=== PATIENT | female | born 1950 | race Caucasian/White ===

== ENCOUNTER 2016-10-09 01:24 | Emergency (ER) | payer MEDICARE ==
[2016-10-09 01:48] LABS: BASOPHIL# 0.1 X 10^3uL (0.0-0.1); BASOPHILS 0.8 % (0.0-2.0); EOSINOPHILS 3.1 % (0.0-6.0); EOSINOPHILS# 0.2 X 10^3uL (0.0-0.4); HEMATOCRIT 40.9 % (36.0-48.0); LYMPHOCYTES 37.1 % (20.0-40.0); LYMPHOCYTES# 2.9 X 10^3uL (0.8-3.8); MEAN CORPUS. HGB CONCENTRATION 34.3 g/dL (32.0-36.0); MEAN CORPUSCULAR HEMOGLOBIN 30.9 pg (29.0-35.0); MEAN PLATELET VOLUME 7.3 fL (7.4-10.4); MONOCYTES 10.1 % (2.0-10.0); MONOCYTES# 0.8 X 10^3uL (0.2-1.0); NEUTROPHILS 48.9 % (54.0-75.0); NEUTROPHILS# 3.9 X 10^3uL (2.6-6.7); RED BLOOD COUNT 4.54 X 10^6uL (4.20-6.10); RED CELL DISTRIBUTION WIDTH 12.8 % (11.5-14.5); WHITE BLOOD COUNT 7.9 X 10^3uL (3.9-10.7)
[2016-10-09 01:50] LABS: ALBUMIN 4.2 g/dL (3.5-5.0); BILIRUBIN, DIRECT 0.3 mg/dL (0.0-0.4); BILIRUBIN, TOTAL 0.6 mg/dL (0.2-1.3); CALCIUM 9.8 mg/dL (8.4-10.2); POTASSIUM 3.6 mmol/L (3.5-5.1); TOTAL PROTEIN 7.5 g/dL (6.3-8.2)
[2016-10-09] MEDS ORDERED: MAG-AL PLUS XS SUSP 30 ML UDC ONE (01:50)
[2016-10-09] MEDS ORDERED: LIDOCAINE VISCOUS 2% 15 ML UDC ONE (01:51)
[2016-10-09] MEDS ORDERED: FAMOTIDINE IN SALINE, ISO-OSM 20 MG/50 ML PIGGYBACK IV ONE (01:51)
--- NOTE | 2016-10-09 02:20 | ER NURSING DOCUMENTATION ---
Nurse's Notes [facility] Name:Ashley Segovia Age:65 yrs Sex:Female :1950 Arrival Date:10/09/2016 Time:01:24 Bed3 Private MD: Diagnosis:Gastritis;Abdominal Pain, Epigastric Presentation: 10/09 01:31 Presenting complaint: Patient states: upper gastric pain x 3 days. Transition of care: bw2 patient was not received from another setting of care. 01:31 Acuity: JUSTICE 2 bw2 01:31 Method Of Arrival: Walk In [facility] Triage Assessment: 01:32 General: Appears uncomfortable, Behavior is appropriate for age. Pain: Complains of bw2 pain in xyphoid area. GI: No deficits noted. Denies diarrhea, nausea. Historical: - Allergies: Keflex; PENICILLINS; - Tetanus: < 10 years. - Ebola Screening: : Patient negative for fever greater than or equal to 101.5 degrees Fahrenheit, and additional compatible Ebola Virus Disease symptoms. Patient denies exposure to infectious person. Patient denies travel to an Ebola-affected area in the 21 days before illness onset. No symptoms or risks identified at this time. . - Immunization history: Flu Vaccine < 1 year. - Social history: Smoking status: Patient states was never smoker of tobacco. Screenin:17 Infectious Disease Risk None. Abuse screen: Denies threats or abuse. Denies injuries bw2 from another. Nutritional screening: No deficits noted. Assessment: 02:16 See Triage Assessment done by same RN. bw2 02:18 GI: Bowel sounds present X 4 quads. Abdomen is tender to palpation in epigastric area. bw2 Vital Signs: 01:33 BP 165 / 93; Pulse 68; Resp 18; Temp 98.7; Pulse Ox 96% on R/A; Weight 88.45 kg; Height bw2 5 ft. 6 in. (167.64 cm); Pain 3/10; 02:17 BP 146 / 74; Pulse 70; Resp 18; Pulse Ox 96% on R/A; bw2 01:33 Body Mass Index 31.47 (88.45 kg, 167.64 cm) 2 ED Course: 01:25 Patient arrived in ED. ma1 01:30 Lui Mccray MD is Attending Physician. jm 01:30 Anum Skinner is Primary Nurse. bw2 01:31 Triage completed. bw2 01:41 EKG done. (by ED staff). Reviewed by Lui Mccray MD. 02:01 [facility] is Referral Physician. 02:17 Valuables Remains with patient Patient has correct armband on for positive bw2 identification. Placed in gown. Bed in low position. Administered Medications: 01:31 CANCELLED (Physician Discretion): Zofran 4 mg IVP once over 2 mins sina 01:42 Drug: NS 0.9% 1000 ml; Route: IV; Rate: bolus; Site: left antecubital; bw2 02:16 Follow up: IV Status: Completed infusion bw2 01:42 Drug: Pepcid 20 mg; Route: IVPB; Site: left antecubital; bw2 02:16 Follow up: IV Status: Completed infusion bw2 01:43 Drug: GI Cocktail w/o Donnatol - (Maalox Suspension 30 ml, Lidocaine Liquid 2 % 15 ml); bw2 Route: PO; 02:16 Follow up: Response: Pain is decreased 2 Outcome: 02:01 Discharge ordered by MD. 02:17 Discharged to home ambulatory, with significant other. 2 02:17 Condition: good 02:17 Discharge Assessment: Patient awake, alert and oriented x 3. No cognitive and/or functional deficits noted. Patient verbalized understanding of disposition instructions. 02:17 Discharge instructions given to patient, Instructed on discharge instructions, follow up and referral plans. medication usage, Demonstrated understanding of instructions, medications, Prescriptions given X 1. 02:18 Patient left the ED. 2 10/10 13:00 Discharge F/U Call: Unable to reach: left voicemail: valerie Signatures: Vivi Baumann, RN Lui Ortega MD MD jm vogel, margaux mv Wisely, Anum bw2 Jody Morris
--- NOTE | 2016-10-09 02:20 | ER PHYSICIAN DOCUMENTATION ---
Physician Documentation [facility] Name:Ashley Segovia Age:65 yrs Sex:Female :1950 Arrival Date:10/09/2016 Time:01:24 Bed3 Private MD: Lui Hwang Disposition: 10/09/16 02:01 Discharged to Home/Self Care. Impression: Gastritis, Abdominal Pain, Epigastric. - Condition is Good. - Discharge Instructions: GASTRITIS (Adult). - Prescriptions for Carafate 1 gram Oral - take 1 tablet by ORAL route 4 times per day take on an empty stomach, beginning on waking and last dose at bedtime; 50 tablet. - Medical Reconciliation form form. - [facility]; When: at 9am then go to your ultrasound after; Reason: Continuance of care. - Problem is an ongoing problem. - Symptoms have improved. - Notes: Also take pepcid twice a day HPI: 10/09 02:02 This 65 yrs old Female presents to ER via Walk In with complaints of jm Abdominal Pain. 02:02 The patient presents with abdominal pain in the epigastric area. Onset: The jm symptoms/episode began/occurred today. The symptoms do not radiate. Associated signs and symptoms: Pertinent negatives: nausea. The symptoms are described as sharp, stabbing. Modifying factors: the symptoms are aggravated by laying down. Severity of pain: in the emergency department the pain has improved. The patient has experienced similar episodes in the past. The patient has not recently seen a physician, has an appointment scheduled, today at 9am. Pain for 1 week mostly at night when she is laying down. Pt says her medicare kicked in yesterday, so she thought now was a good time to see a doctor. . Historical: - Allergies: Keflex; PENICILLINS; - Tetanus: < 10 years. - Ebola Screening: : Patient negative for fever greater than or equal to 101.5 degrees Fahrenheit, and additional compatible Ebola Virus Disease symptoms. Patient denies exposure to infectious person. Patient denies travel to an Ebola-affected area in the 21 days before illness onset. No symptoms or risks identified at this time. . - Immunization history: Flu Vaccine < 1 year. - Social history: Smoking status: Patient states was never smoker of tobacco. ROS: 02:04 Constitutional: Negative for fatigue, fever. jm 02:04 Cardiovascular: Negative for chest pain. 02:04 Respiratory: Negative for shortness of breath. 02:04 Abdomen/GI: Positive for abdominal pain, Negative for nausea, vomiting, diarrhea, constipation. 02:04 All other systems are negative. Exam: 02:04 Constitutional: The patient appears alert, awake, comfortable, obese. jm 02:04 Eyes: Periorbital structures: appear normal, Conjunctiva: normal. 02:04 Cardiovascular: Rate: normal, Rhythm: regular. 02:04 Respiratory: the patient does not display signs of respiratory distress, Respirations: normal. 02:04 Abdomen/GI: Bowel sounds: normal, Palpation: mild abdominal tenderness, in the epigastric area and right upper quadrant. 02:04 Back: ROM is normal, CVA tenderness, is absent. 02:04 : CVA tenderness, is absent, Bladder: tenderness, is not appreciated. 02:04 Skin: Appearance: Color: pink, no rash present. 02:04 Neuro: Mentation: is normal, Memory: is normal. 02:04 Psych: Behavior/mood is pleasant, cooperative, Affect is calm. Vital Signs: 01:33 BP 165 / 93; Pulse 68; Resp 18; Temp 98.7; Pulse Ox 96% on R/A; Weight 88.45 kg; Height bw2 5 ft. 6 in. (167.64 cm); Pain 3/10; 02:17 BP 146 / 74; Pulse 70; Resp 18; Pulse Ox 96% on R/A; bw2 01:33 Body Mass Index 31.47 (88.45 kg, 167.64 cm) bw2 MDM: 01:30 Patient medically screened. 02:06 Differential diagnosis: cholecystitis, Cholelithiasis, gastritis, non-specific abd jm pain, pancreatitis. Data reviewed: vital signs, nurses notes, old medical records, lab test result(s), and as a result, I will discharge patient. Counseling: I had a detailed discussion with the patient and/or guardian regarding: the historical points, exam findings, and any diagnostic results supporting the discharge/admit diagnosis, lab results, the need for outpatient follow up, with the patient's primary care provider. Medication response: The patient's symptoms have improved, ED course: Pt better after GI cocktail. I feel her pain is gastritis/GERD related, however I also feel pt needs a formal RUQ US to r/u gall bladder pathology. I could not get a good look at her gall bladder this AM. Pt told to take Pepcid BID and make her appointment w Oli Hale tomorrow and then come back to [facility] for US. . 10/09 01:51 Order name: CBC AUTO DIF, MDIF/RMOR IF IND; Complete Time: :58 EDMS 10/09 01:52 Order name: BASIC METABOLIC PANEL; Complete Time: : EDMS 10/09 01:52 Order name: HEPATIC PANEL; Complete Time: :58 EDMS 10/09 01:52 Order name: LIPASE; Complete Time: :58 EDMS 10/09 01:31 Order name: NPO; Complete Time: :43 10/09 01:31 Order name: 12-lead EKG; Complete Time: :43 Dispensed Medications: 01:31 CANCELLED (Physician Discretion): Zofran 4 mg IVP once over 2 mins 01:42 Drug: NS 0.9% 1000 ml; Route: IV; Rate: bolus; Site: left antecubital; bw2 02:16 Follow up: IV Status: Completed infusion bw2 01:42 Drug: Pepcid 20 mg; Route: IVPB; Site: left antecubital; bw2 02:16 Follow up: IV Status: Completed infusion bw2 01:43 Drug: GI Cocktail w/o Donnatol - (Maalox Suspension 30 ml, Lidocaine Liquid 2 % 15 ml); bw2 Route: PO; 02:16 Follow up: Response: Pain is decreased bw2 Signatures: Lui Mccray MD MD jm Wisely, Beth bw2
== END 2016-10-09 02:19 | disposition home or self-care (01) ==
LOC: ER 01:24 → EDBD 01:24 → ER 02:19
DX: K29.70 Gastritis, unspecified, without bleeding (principal)
CPT/HCPCS: 80048; 80076; 83690; 85025; 93005; 96365; 99283; 99284